=== PATIENT | female | born 1965 | race Caucasian/White ===

== ENCOUNTER 2017-10-24 11:51 | Emergency (ER) | payer MEDICARE ==
[~2017-10-24] VITALS: Ht 160 cm; Wt 78.5 kg
[2017-10-24 12:30] VITALS: BP 117/68
[2017-10-24] MEDS ORDERED: CLEOCIN IM STA (12:50)
--- NOTE | 2017-10-24 13:02 | ER.PDOC ---
General Chief Complaint: Toothache Stated Complaint: TOOTH ACHE Time seen by MD: 12:59 Source: patient Exam Limitations: no limitations History of Present Illness Initial Comments Toothache for 2-3 days Timing/Duration: gradual Associated Symptoms: toothache, facial pain (left) Severity: moderate Past Medical History Medical History: asthma, fibromyalgia, high cholesterol, hypertension Surgical History: , hysterectomy LMP (females 10-50): hysterectomy Social History Smoking: less than 1 pack/day Alcohol Use: none Drug Use: none Constitutional: no symptoms reported Eyes: no symptoms reported Ears: no symptoms reported Nose: no symptoms reported Mouth: see HPI Throat: no symptoms reported Respiratory: no symptoms reported Cardiovascular: no symptoms reported All Other Systems: Reviewed and Negative Physical Exam General Appearance: alert, no distress Head/Neck: head nml inspection, neck nml inspection, trachea midline, no lymphadenopathy, thyroid nml Eyes: eyes nml inspection Mouth: dental tenderness (left upper premolar), gum swelling, widespread dental decay Throat: pharynx nml, voice nml, no airway problems Ears/Nose: nml inspection Respiratory: no resp. distress, lungs clear CVS: reg. rate & rhythm, heart sounds nml Abdomen: non-tender, no organomegaly Extremities: non-tender, ROM nml Skin Exam: Normal Color, Warm/Dry NEURO/PSYCH: oriented X3, mood/effect nml Departure Time of Disposition: 13:00 Disposition: 01 HOME, SELF-CARE Impression: Primary Impression: Pain, dental Additional Impression: Infected dental carries Condition: Stable Referrals: PCP,UNKNOWN (PCP) PRIMARY CARE PROVIDER Additional Instructions: Clindamycin Continue Ibuprofen F/U with your Dentist WANDA Duration or Time Spent with Pa: 45 mins LORIE CAMPA MD Oct 24, 2017 13:02
[2017-10-24] MEDS ORDERED: CLEOCIN ONE (13:09)
[2017-10-24 13:34] VITALS: BP 117/68
== END 2017-10-24 13:31 | disposition home or self-care (01) ==
LOC: ER 11:51
DX: K02.9 Dental caries, unspecified (principal); J45.909 Unspecified asthma, uncomplicated; M79.7 Fibromyalgia; E78.00 Pure hypercholesterolemia, unspecified; F17.200 Nicotine dependence, unspecified, uncomplicated
CPT/HCPCS: 96372; 99283; J3490